=== PATIENT | female | born 1985 | race Caucasian/White ===

== ENCOUNTER 2023-02-22 10:59 | Emergency (ER) | payer BC, SELFPAY ==
--- NOTE | ~2023-02-22 | CT_ITS ---
EXAMINATION: CT head/brain wo IV con CLINICAL INFORMATION: Reason for Exam headache COMPARISON: None. TECHNIQUE: Contiguous axial imaging was performed from the skull base to vertex without intravenous contrast. Sagittal and coronal reformatted images were obtained. This CT examination was performed using dose optimization techniques as appropriate, variously including the following: * Automated exposure control * Adjustment of mA and/or kV according to patient size (this includes techniques or standardized protocols for targeted exams where dose is matched to indication/reason for exam; i.e. extremities or head) Use of iterative reconstruction technique DLP: 661.27 mGy-cm FINDINGS: No acute osseous or soft tissue abnormality. The mastoid air cells and visualized portions of the paranasal sinuses are well aerated. There is no evidence of acute intracranial hemorrhage or territorial infarction. No abnormal mass effect or midline shift is seen. Stout to white matter differentiation is well preserved. No extra-axial fluid collections are identified. No hydrocephalus. No significant volume loss. There is no abnormal attenuation within the brain parenchyma. CT/CT head/brain wo IV con IMPRESSION: No acute intracranial abnormality including hemorrhage, mass effect, hydrocephalus, or acute territorial edematous infarction.
[2023-02-22 11:06] VITALS: BP 137/86; PULSE 76; RESP 16; TEMP 36.2; O2SAT 98; BMI 34.5
--- OUTSIDE RECORDS SUMMARY | 2023-02-22 11:53 | XMS_ITS | Continuity of Care Document ---
Author Name Unknown Organization [facility] Address [address] [place] [address], [address] [place] [address]- Care Team Providers Care Behavior Management Specialist Name Role Phone Humble MALAVE, Jean Claude Primary Care Physician [place] [facility] [place] Date(s): 10/14/21 - 10/21/21 [facility] [address] [place] [address] Drive, [address] [place] [address]- Attending Physician: José Fong MD Referring Physician: Savannah Oates Allergies, Adverse Reactions, Alerts No Known Allergies Immunizations Given and Recorded Vaccine Date Status Refusal Reason influenza virus vaccine, inactivated 03/13/15 Give n influenza virus vaccine, inactivated 03/10/14 Give n influenza virus vaccine, inactivated 1 07/27/13 Gi vidhi influenza virus vaccine, inactivated 2 03/12/11 Gi vidhi tetanus/diphtheria/pertussis, acel(Tdap) 05/17/13 Given Hepatitis B Vaccine (old term) 3 03/29/12 Given Influenza Vaccine (oldterm) 4 03/29/12 Given tetanus-diphtheria toxoids (Td) 5 05/03/07 Given 1Admin Note: vis 12/31/2012 2Admin Note: VIS 12/31/10 3Admin Note: vis given 12/23/2006 4Admin Note: vis given 12/08/2011 5Admin Note: vis given 11/15/93 Medications Eliquis 5 mg oral tablet 1 tablet = 5 mg, By Mouth, 2 times a day, # 60 tablet, 5 Refills, Maintenance, 09/26/21 17:57:00 EDT, Tablet, Partial fill upon patient request if the prescription is for a schedule II opioid drug. Start Date: 09/26/21 Status: Ordered Medrol Dosepak 4 mg oral tablet 1 pack/packet, By Mouth, Daily, for 6 days, as directed on package labeling, # 21 tablet, 5 Refills, Acute 11/04/21 9:31:00 EDT, 09/29/21 9:31:00 EDT, Tablet, [facility]/pharmacy #[id number], Partial fill upon patient request if the prescription is for a schedule... Start Date: 09/29/21 Stop Date: 11/04/21 Status: Ordered oxyCODONE 5 mg oral tablet TAKE 1-2 TABS EVERY 4-6 HRS NEEDED FOR PAIN. DO NOT DRIVE WHLE TAKING MEDICATION Start Date: 09/26/21 Status: Ordered oxyCODONE 5 mg oral tablet See Instructions, PRN, 1-2 tablet By Mouth Every 4 hours, # 60 tablet, Refills 0, Tot. Refills 0, Maintenance, for pain, 09/29/21 12:03:00 EDT, Instructions Replace Required Details, Route to Pharmacy Electronically, [facility]/pharmacy #[id number], Partial fill u... Start Date: 09/29/21 Status: Ordered tiZANidine 4 mg oral tablet 4 mg, 1, tablet, By Mouth, 3 times a day, PRN, # 90 tablet, Refills 0, Tot. Refills 0, Maintenance,Spasm, 09/29/21 9:31:00 EDT, Route to Pharmacy Electronically, [facility]/pharmacy #[id number], Partial fill upon patient request if the prescription is for a sched... Start Date: 09/29/21 Status: Ordered walker walker, See Instructions, # 1 each, Refills 0, Tot. Refills 0, Maintenance, s/p lumbar surgery, gait changes, 09/27/21 15:48:00 EDT, Supply Start Date: 09/27/21 Status: Ordered Problem List Condition Effective Dates Status Health Status Inform ant Gallstone pancreatitis(Confirmed) Active Goal-stop smoking(Confirmed) Active Headache(Confirmed) Active Irritable bowel syndrome(Confirmed) Active Major depression(Confirmed) Active Missed (Confirmed) 09/08/08 Active Obese class I(Confirmed) Active Ovarian cyst(Confirmed) Active Smoking(Confirmed) Active Social History Social History Type Response Smoking Status Former smoker; Other : quit 2011; entered on: 07/04/15 Sex
--- OUTSIDE RECORDS SUMMARY | 2023-02-22 11:53 | XMS_ITS | Continuity of Care Document ---
Author Name Unknown Organization [facility] Address [address] [place] [address], [address] [place] [address]- Care Team Providers Care Invoicing Specialist Name Role Phone Humble MALAVE, Jean Claude Primary Care Physician Encounter [facility] [place] Date(s): 09/30/21 - 10/30/21 [facility] [address] [place] [address] Drive, [address] [place], [place] [address] Allergies, Adverse Reactions, Alerts No Known Allergies [...] 11/04/21 9:31:00 EDT, 09/29/21 9:31:00 EDT, Tablet, [facility]/pharmacy #[id number], Partial fill upon patient request if [...] Replace Required Details, Route to Pharmacy Electronically, [facility]/pharmacy #[id number], Partial fill u... Start Date: 09/29/21 Status: Ordered tiZANidine 4 mg oral tablet 4 mg, 1, tablet, By Mouth, 3 times a day, PRN, # 90 tablet, Refills 0, Tot. Refills 0, Maintenance,Spasm, 09/29/21 9:31:00 EDT, Route to Pharmacy Electronically, [facility]/pharmacy #[id number], Partial fill upon patient request if the prescription is for a sched... Start Date: 09/29/21 Status: Ordered aram chiu, See Instructions, # 1 each, Refills 0, [...]
--- OUTSIDE RECORDS SUMMARY | 2023-02-22 11:53 | XMS_ITS | Continuity of Care Document ---
Author Name Unknown Organization [facility] Address [address] [place] [address] [address], [address] [place] [address]- Care Team Providers Care Credit Coordinator Name Role Phone Humble MALAVE, Jean Claude Primary Care Physician [place] [facility] [place]07[place]21 [place] 11/06/21 [facility] [address] [place] [address] Drive, [address] [place] [address]- Allergies, Adverse Reactions, Alerts No Known Allergies [...] opioid drug. Start Date: 09/26/21 Status: Ordered oxyCODONE 5 [...] Replace Required Details, Route to Pharmacy Electronically, [facility]/pharmacy #[id number], Partial fill u... Start Date: 09/29/21 Status: Ordered tiZANidine 4 mg oral tablet 4 mg, 1, tablet, By Mouth, 3 times a day, PRN, # 90 tablet, Refills 0, Tot. Refills 0, Maintenance,Spasm, 09/29/21 9:31:00 EDT, [id number], Partial fill upon patient request if [...]
--- OUTSIDE RECORDS SUMMARY | 2023-02-22 11:53 | XMS_ITS | Continuity of Care Document ---
Author Name Unknown Organization [facility] Address [address] [place] [address], [address] [place] [address]- Care Team Providers Care Manager Domestic Name Role Phone Jean Claude Kate MD Primary Care Physician [phone] Encounter [facility] [place] Date(s): 10/15/21 - 12/12/21 [facility] [address] [place] [address] Drive, [address] [place] [address]- Attending Physician: José Fong MD Referring Physician: Jean Claude Kate MD Allergies, Adverse Reactions, Alerts No Known Allergies [...] Replace Required Details, Route to Pharmacy Electronically, [facility]/pharmacy #[id number], Partial fill u... Start Date: 09/29/21 Status: Ordered tiZANidine 4 mg oral tablet 4 mg, 1, tablet, By Mouth, 3 times a day, PRN, # 90 tablet, Refills 0, Tot. Refills 0, Maintenance,Spasm, 09/29/21 9:31:00 EDT, [id number] Partial fill upon patient request [...]
--- OUTSIDE RECORDS SUMMARY | 2023-02-22 11:53 | XMS_ITS | Continuity of Care Document ---
Author Name Unknown Organization [facility] Address [address] [place] [address] [address], [address] [address]- Care Team Providers Care Apprentice Plant Attendant Name Role Phone Humble MALAVE, Jean Claude Primary Care Physician [place] [facility] [place]s): 01/20/22 - 02/19/22 [facility] [address] [place] [address] Drive, [address] [id number] Allergies, Adverse Reactions, Alerts No Known Allergies [...] Replace Required Details, [id number] u... Start Date: 09/29/21 Status: Ordered tiZANidine 4 mg oral tablet 4 mg, 1, tablet, By Mouth, 3 times a day, PRN, # 90 tablet, Refills 0, Tot. Refills 0, Maintenance,Spasm, 09/29/21 9:31:00 EDT, [id number] Partial fill upon patient request if [...] : quit 2011; entered on: 07/04/15 Sex Care Team Personnel Name: Humble MALAVE, Jean Claude Address: [address] [facility] [place] [id number]
--- OUTSIDE RECORDS SUMMARY | 2023-02-22 11:53 | XMS_ITS | Continuity of Care Document ---
Author Name Unknown Organization [facility] ter Address [address] [place] [address]- Care Team Providers Care Needle Valve Operator Name Role Phone Humble MALAVE, Jean Claude Primary Care Physician Encounter [facility] [place] Date(s): 09/26/21 - 09/29/[address] [address] Encounter Diagnosis Cauda equina syndrome(Final) - 09/26/21 Discharge Disposition: A-D/C Home Attending Physician: José Fong MD Admitting Physician: José Fong MD Referring Physician: Not on Staff, Referring MD Allergies, Adverse Reactions, Alerts No Known [...] 11/04/21 9:31:00 EDT, 09/29/21 9:31:00 EDT, Tablet, [facility]/pharmacy #[id number], Partial fill upon patient request if the prescription is for a schedule... Start Date: 09/29/21 Stop Date: 11/04/21 Status: Ordered oxyCODONE 5 mg oral tablet 10 mg, Tablet, By Mouth, Every 4 hours, PRN for Pain , Moderate, Routine, 09/26/21 22:33:00 EDT Start Date: 09/26/21 Stop Date: 09/29/21 Status: Discontinued oxyCODONE 5 mg oral tablet TAKE 1-2 TABS EVERY 4-6 HRS NEEDED FOR PAIN. DO NOT DRIVE WHLE TAKING MEDICATION Start Date: 09/26/21 Status: Ordered oxyCODONE 5 mg oral tablet See Instructions, PRN, 1-2 tablet By Mouth Every 4 hours, # 60 tablet, Refills 0, Tot. Refills 0, Maintenance, for pain, 09/29/21 12:03:00 EDT, Instructions Replace Required Details, Route to Pharmacy Electronically, [facility]/pharmacy #[id number], Partial fill u... Start Date: 09/29/21 Status: Ordered tiZANidine 4 mg oral tablet 4 mg, 1, tablet, By Mouth, 3 times a day, PRN, # 90 tablet, Refills 0, Tot. Refills 0, Maintenance,Spasm, 09/29/21 9:31:00 EDT, Route to Pharmacy Electronically, [facility]/pharmacy #[id number], Partial fill upon patient request if [...] I(Confirmed) Active Ovarian cyst(Confirmed) Active Smoking(Confirmed) Active Results Radiology Reports * Exam Date Time Procedure Performing Provider Status 09/27/21 12:10 AM C-Arm > 1 Hour Mee Bee; Auth (Verified) Notes: (C-Arm > 1 Hour) Reason For Exam: Microdisectomy L5-S1 RESULT: C-Arm > 1 Hour Spine Single View, C-Arm > 1 Hour Reason: Microdisectomy L5-S1; Special Instructions: FT 5.4s TT 1hr DAP 2.22 HISTORY: Vitaliy level for surgery. COMPARISON: September 17 Technique: Fluoroscopy was used. No radiologist was present during the procedure. Fluoroscopy time 5.4 seconds. Exposure dose 2.22 mGy. FINDINGS: The anterior tip of the metallic marker is at the L5-S1 level. IMPRESSION: Tip of the metallic marker is at the L5-S1 level. WSN: [id number] Ordering Physician: José Fong Dictated By: Shane Walker MD Dictated Date/Time: 09/27/21 8:39 am Reviewed By: Shane Walker MD Signed By: Shane Walker MD Signed Date/Time: 09/27/21 8:39 am Transcribed By: LAXMI Transcribed Date/Time: 09/27/21 8:33 am * Exam Date Time Procedure Performing Provider Status 09/27/21 12:10 AM Spine Single View Mee Bee; [facility] (Verified) Notes: (Spine Single View) Reason For Exam: Microdisectomy L5-S1 RESULT: Spine Single View Spine Single View, C-Arm > 1 Hour Reason: Microdisectomy L5-S1; Special Instructions: FT 5.4s TT 1hr DAP 2.22 HISTORY: Vitaliy level for surgery. COMPARISON: September 17 Technique: Fluoroscopy was used. No radiologist was present during the procedure. Fluoroscopy time 5.4 seconds. Exposure dose 2.22 mGy. FINDINGS: The anterior tip of the metallic marker is at the L5-S1 level. IMPRESSION: Tip of the metallic marker is at the L5-S1 level. WSN: [id number] Ordering Physician: José Fong Dictated By: Shane Walker MD Dictated Date/Time: 09/27/21 8:39 am Reviewed By: Shane Walker MD Signed By: Shane Walker MD Signed Date/Time: 09/27/21 8:39 am Transcribed By: LAXMI Transcribed Date/Time: 09/27/21 8:33 am Vital Signs Most recent to oldest [Reference Range]: 1 2 3 Height 160 cm (09/29/21 8:00 AM) 160 cm (09/29/21 4:41 AM) 160 cm (09/28/21 11:44 PM) Weight 81.8 kg (09/27/21 2:38 AM) 83 kg (09/26/21 8:42 PM) Oxygen Saturation [94-100 %] 100 % (09/29/21 8:00 AM) 97 % (09/29/21 4:41 AM) 97 % (09/28/21 11:44 PM) Pulse Rate [55-90 bpm] 72 bpm (09/29/21 8:00 AM) 66 bpm (09/29/21 4:41 AM) 74 bpm (09/28/21 11:44 PM) Body Mass Index [18.5-24.99] 31.95 *>HHI* (09/27/21 2:38 AM) Blood Pressure [90-138/55-84 mm Hg] 111/65mm Hg (09/29/21 8:00 AM) 110/64mm Hg (09/29/21 4:41 AM) 118/69mm Hg (09/28/21 11:44 PM) Respiratory Rate [16-30 br/min] 18 br/min (09/29/21 8:00 AM) 18 br/min (09/29/21 4:50 AM) 16 br/min (09/29/21 4:41 AM) Temperature [96.8-100.4 DegF] 98.3 DegF (09/29/21 8:00 AM) 98.4 DegF (09/29/21 4:41 AM) 98.5 DegF (09/28/21 11:44 PM) Liters per Minute 6 L/min (09/27/21 12:30 AM) 6 L/min (09/26/21 11:45 PM) Mode of Delivery (Oxygen) Room air (09/29/21 8:00 AM) Room air (09/29/21 4:41 AM) Room air (09/28/21 11:44 PM) Blood pressure sites Arm, left (09/29/21 8:00 AM) Arm, right (09/29/21 4:41 AM) Arm, left (09/28/21 11:44 PM) Temperature Route Oral (09/29/21 8:00 AM) Oral (09/29/21 4:41 AM) Oral (09/28/21 11:44 PM) Dry Weight 81.8 kg (09/27/21 2:38 AM) Weight Obtained Via Patient/family state d (09/26/21 8:42 PM) Social History Social History Type Response Smoking Status Former smoker; Other : quit 2011; entered on: 07/04/15 Sex Female
--- OUTSIDE RECORDS SUMMARY | 2023-02-22 11:53 | XMS_ITS | Continuity of Care Document ---
Author Name Unknown Organization [facility] Address [address] [place] [address]- Care Team Providers Care Tester Operator Helper Name Role Phone Shane Chen DO Primary Care Physician Encounter [facility] Date(s): 07/19/21 - 08/18/21 [facility] [address] [place] [address] Allergies, Adverse Reactions, Alerts No Known [...] 12/08/2011 5Admin Note: vis given 11/15/93 Medications busPIRone 15 mg oral tablet 1 tablet = 15 mg, By Mouth, 2 times a day, 0 Refills, Maintenance, 04/15/19 18:43:41 EST Start Date: 04/15/19 Status: Ordered Freestyle Lancets See Instructions, # 100 each, Refills 6, Tot. Refills 6, Maintenance, use to check blood sugar twice daily. E16.2, 07/10/21 11:40:00 EST, Compound, 160, cm, 07/10/21 11:07:00 EST, Height Start Date: 07/10/21 Status: Ordered Freestyle Lite Monitor See Instructions, # 1 each, Refills 0, Tot. Refills 0, Maintenance, use to check blood sugar twice daily. E16.2, 07/10/21 11:40:00 EST, Compound, 160, cm, 07/10/21 11:07:00 EST, Height Start Date: 07/10/21 Status: Ordered Freestyle Lite Test Strips See Instructions, # 100 each, Refills 4, Tot. Refills 4, Maintenance, use to check blood sugar twice daily. E16.2, 07/10/21 11:40:00 EST, Compound, 160, cm, 07/10/21 11:07:00 EST, Height Start Date: 07/10/21 Status: Ordered Problem List Condition Effective Dates [...]
--- OUTSIDE RECORDS SUMMARY | 2023-02-22 11:53 | XMS_ITS | Continuity of Care Document ---
Author Name Unknown Organization [facility] Address [address] [place] [address], [address] [place] [address]- Care Team Providers Care Shirring Machine Operator Name Role Phone Humble MALAVE, Jean Claude Primary Care Physician En[place] [facility] [place](s): 01/27/22 - 02/26/22 [facility] [address] [place] [address] Drive, [address] [place], [place] [address] Attending Physician: Becky Malave Admitting Physician: AdmtrBecky Referring Physician: Admtr, Ar8 Allergies, Adverse Reactions, Alerts No Known Allergies [...] Replace Required Details, Route to Pharmacy Electronically, [facility]/pharmacy #[id number], Partial fill u... Start Date: 09/29/21 Status: Ordered tiZANidine 4 mg oral tablet 4 mg, 1, tablet, By Mouth, 3 times a day, PRN, # 90 tablet, Refills 0, Tot. Refills 0, Maintenance,Spasm, 09/29/21 9:31:00 EDT, Route to Pharmacy Electronically, [facility]/pharmacy #[id number], Partial fill upon patient request if [...] Jean Claude Address: [address] [facility] [place], [place] [address]
--- OUTSIDE RECORDS SUMMARY | 2023-02-22 11:53 | XMS_ITS | Continuity of Care Document ---
Author Name Unknown Organization [facility] Address [address] [place] [address]- Care Team Providers Care Pattern Filer Name Role Phone Humble MALAVE, Jean Claude Primary Care Physician [place] [facility] [place](s): 11/27/21 - 12/27/21 [facility] [address] [place] [id number] Attending Physician: Becky Malave Admitting Physician: AdmtrBecky Referring Physician: AdmtrBecky Allergies, Adverse Reactions, Alerts No Known Allergies [...] Replace Required Details, Route to Pharmacy Electronically, [facility]/pharmacy #[id number], Partial fill u... Start Date: 09/29/21 Status: Ordered tiZANidine 4 mg oral tablet 4 mg, 1, tablet, By Mouth, 3 times a day, PRN, # 90 tablet, Refills 0, Tot. Refills 0, Maintenance,Spasm, 09/29/21 9:31:00 EDT, Route to Pharmacy Electronically, [facility]/pharmacy #[id number], Partial fill upon patient request if [...]
--- OUTSIDE RECORDS SUMMARY | 2023-02-22 11:53 | XMS_ITS | Continuity of Care Document ---
Author Name Unknown Organization [facility] Address [address] [place] [address], [address] [place] [address]- Care Team Providers Care Seo Marketing Specialist Name Role Phone Jean Claude Kate MD Primary Care Physician [phone] Encounter [facility] [place] Date(s): 01/27/22 - 02/03/22 [facility] [address] [place] [address] Drive, [address] [place] [address]- Attending Physician: José Fong MD Referring Physician: [...] Replace Required Details, Route to Pharmacy Electronically, [facility]/pharmacy #[id number], Partial fill u... Start Date: 09/29/21 Status: Ordered tiZANidine 4 mg oral tablet 4 mg, 1, tablet, By Mouth, 3 times a day, PRN, # 90 tablet, Refills 0, Tot. Refills 0, Maintenance,Spasm, 09/29/21 9:31:00 EDT, Route to Pharmacy Electronically, [facility]/pharmacy #[id number], Partial fill upon patient request [...] I(Confirmed) Active Ovarian cyst(Confirmed) Active Smoking(Confirmed) Active Vital Signs Most recent to oldest [Reference Range]: 1 Height 160 cm (01/27/22 10:16 AM) Weight 81.8 kg (01/27/22 10:16 AM) Body Mass Index [18.5-24.99] 31.95 *>HHI* (01/27/22 10:16 AM) Social History Social History Type Response Smoking Status Former smoker; Other : quit 2011; entered on: 07/04/15 Sex Care Team Personnel Name: Jean Claude Kate MD Address: [address] [facility] [address]
--- OUTSIDE RECORDS SUMMARY | 2023-02-22 11:53 | XMS_ITS | Continuity of Care Document ---
Author Name Unknown Organization [facility] Address [address] [place] [address], [address] [place] [address]- Care Team Providers Care Steam Station Supervisor Name Role Phone Humble MALAVE, Jean Claude Primary Care Physician [place] [facility] [place] 12[place]12/21 [facility] [address] [place] [address] Drive, [address] [place], [place] [address] Attending Physician: Becky Malave Admitting Physician: AdmtrBecky Referring Physician: Admtr, ArBilly Allergies, Adverse Reactions, Alerts No Known Allergies [...] Replace Required Details, Route to Pharmacy Electronically, [facility]/pharmacy #[id number], Partial fill u... Start Date: 09/29/21 Status: Ordered tiZANidine 4 mg oral tablet 4 mg, 1, tablet, By Mouth, 3 times a day, PRN, # 90 tablet, Refills 0, Tot. Refills 0, Maintenance,Spasm, 09/29/21 9:31:00 EDT, Route to Pharmacy Electronically, [facility]/pharmacy #[id number], Partial fill upon patient request [...]
--- NOTE | 2023-02-22 12:24 | ED_ITS ---
HPI - Headache General Chief Complaint: Headache Stated Complaint: Headache Time Seen by Provider: 02/22/23 12:13 Source: patient and RN notes reviewed Mode of arrival: ambulatory Limitations: no limitations History of Present Illness HPI Narrative: This is a 37-year-old female presenting to the emergency department with complaints of headache for the last 2 days. Patient reports that this started yesterday states that the pain is different than typical migraines. She states that she typically has a bandlike sensation around her with her migraines however states that since yesterday she has had a stabbing sensation in the right side of her head. She has tried all of her migraine medications including triptans which has provided her without any relief. Patient reports that over this last week she has had cold-like symptoms and was seen by urgent care and was prescribed azithromycin which she has been taking.. Denies any recent trauma or injury to her head. She is not on blood thinners. No other complaints or concerns at this time. MD elicited complaint: migraine Pertinent past history: migraines Onset (ago): day(s) Onset description: gradually Location: right Severity: severe Quality & Timing: sharp and different than previous headaches Exacerbating factors: none Relieving factors: nothing Associated symptoms: nausea, vomiting, photophobia and sensitivity to sound Treatments prior to arrival: none Related Data Previous Rx's Medication Instructions Recorded judqdndblr-uvgqiytbttiie-vcdkyrnz 1 cap PO Q4-6H PRN pain #20 caps 02/22/23 50 mg-300 mg-40 mg capsule (Fioricet) Allergies Allergy/AdvReac Type Severity Reaction Status Date / Time No Known Allergies Allergy Verified 02/22/23 11:06 [No Known Allergies*] Review of Systems Review of Systems: Yes all other systems are reviewed and are negative Constitutional: Constitutional: Reports as per HPI [facility] Past Medical History Attestation statement: The following information was validated with the patient. Social History Social History Advance Directives: No Advance Directives Information Provided: Yes Physical Exam Vital Signs: Vital Signs: Last Vital Signs Temp 97.1 F 02/22/23 11:06 Pulse 81 02/22/23 16:18 Resp 16 02/22/23 14:49 BP 108/64 02/22/23 16:18 Pulse Ox 98 02/22/23 11:06 O2 Del Method Room Air 02/22/23 14:49 BMI result Body Mass Index 34.5 Const: General: cooperative, comfortable and no acute distress Orientation/consciousness: patient oriented x3 Limitations: no limitations HEENT: Other: No sinus tenderness to palpation. Head: Yes normal to inspection, Yes normocephalic and Yes atraumatic Ears: hearing grossly normal bilaterally General nose exam: Normal external nose present Face and sinus: Yes normal facial exam Mouth: Normal oral and palatal mucosa present, oropharynx normal and moist mucous membranes Throat: Yes posterior oropharynx normal Eyes: General: appearance normal, both eyes and all related structures Eyelids: Yes eyelids normal Conjunctivae: conjunctivae normal Sclerae: sclerae normal Pupils: Equal, round and reactive pupils present EOM: EOMs intact bilaterally Neck: Neck: Yes normal visual inspection, Yes full ROM and Yes no l ymphadenopathy Lymphatic: no lymphadenopathy noted Chest: Chest palpation & inspection: normal inspection of the chest Resp: Effort & Inspection: normal respiratory effort and able to speak in complete sentences Auscultation: clear to auscultation bilaterally, no crackles, no rales, no rhonchi and no wheezes Cardio: Rate: regular rate Rhythm: regular rhythm Heart sounds: S1 normal heart sound present and S2 normal heart sound present GI: Inspection: Yes normal to inspection Skin: General skin exam: no rashes or lesions noted Trauma: no lacerations or abrasions Wounds: no wounds Neuro: General: patient oriented x3 and moves all extremities Cranial nerves: Yes CN's II-XII intact bilaterally, Yes Facial sensation intact/muscles of mastication intact, Yes Equal, round and reactive pupils present, Yes Nystagmus not present, Yes Ability to bilaterally rotate head present and Yes A bility to bilaterally elevate shoulders present Cognition (Neuro): normal cognition Gait exam (Neuro): Normal gait present Motor exam (neuro): 5/5 motor strength present throughout and Pronator motor function not present Coordination: udcyiv-as-rlks test normal, fcjw-xp-ztps test normal and tandem gait normal Romberg Test: Negative Extrem: General: Yes normal to inspection Right upper extremity: normal to inspection Left upper extremity: normal to inspection Right lower extremity: normal to inspection Left lower extremity: normal to inspection Course Reevaluation(s) Reevaluation #1: Patient resting comfortably, asleep in bed, feeling better just tired, will discharge home with Fioricet. Advised to return with any new or worsening symptoms. Patient understands and agrees with plan. Patient stable for discharge. Time: 16:09 Medications Administered Discontinued Medications Generic Name Dose Route Start Last Admin Trade Name Bridgette PRN Reason Stop Dose Admin Acetaminophen/Butalbital/Caffeine 1 tab 02/22/23 15:08 02/22/23 15:14 Butalb/Acetamin/Caff 50/325/40 Tablet PO 02/22/23 15:09 1 tab ONCE ONE Administration Diphenhydramine HCl 50 mg 02/22/23 12:22 02/22/23 12:39 Diphenhydramine Hcl 50 Mg/Ml Vial IVPUSH 02/22/23 12:23 50 mg ONCE ONE Administration Sodium Chloride 1,000 mls @ 999 mls/hr 02/22/23 12:23 02/22/23 13:46 Ns IV 02/22/23 13:23 Infused .Q1H1M ONE Infusion Sodium Chloride 1,000 mls @ 999 mls/hr 02/22/23 13:43 02/22/23 15:02 Ns IV 02/22/23 14:43 Infused .Q1H1M ONE Infusion Ketorolac Tromethamine 30 mg 02/22/23 13:43 02/22/23 13:51 Ketorolac Tromethamine 30 Mg/Ml Vial IVPUSH 02/22/23 13:44 30 mg ONCE ONE Administration Metoclopramide HCl 10 mg 02/22/23 12:22 02/22/23 12:39 Metoclopramide Hcl 10 Mg/2 Ml Vial IVPUSH 02/22/23 12:23 10 mg ONCE ONE Administration Morphine Sulfate 4 mg 02/22/23 12:22 02/22/23 12:38 Morphine Sulfate 4 Mg/Ml Cartridge IVPUSH 02/22/23 12:23 4 mg ONCE ONE Administration Protocol Medical Decision Making Medical Decision Making MDM Narrative: 37-year-old female presenting to the emergency department with complaints of migraine since yesterday. On examination, vital signs within normal limits. Patient is fully neurologically intact. Patient reports that her migraine currently is different than the migraine she has had in the past. She states that she typically goes to [facility] for her migraines which respond well to migraine cocktail. Given different onset and pain than her typical migraine, CT head was ordered. Given patient is in significant amount of pain, will medicate with Benadryl, Reglan, morphine 4 mg IV. Will hold off on Toradol until we receive CT scan of the head. Differential Diagnosis Differential Diagnoses: The differential diagnosis associated with the presentation includes Migraine, tension headache, cluster headache Admission/Observation Consideration of admission/observation: Escalation of care including admission/observation considered Patient would have been admitted to the hospital had her work up had any findings where hospital admission was appropriate and her clinical presentation warranted hospital admission. Lab Data MDM Lab Attestation statement: I reviewed the patient's lab results. Flu, RSV, COVID negative Labs: Lab Results 02/22/23 Range/Units 12:47 Influenza Type A (PCR) NEGATIVE (Negative) Influenza Type B (PCR) NEGATIVE (Negative) RSV RNA Qual (PCR) NEGATIVE (Negative) SARS-CoV-2 RNA (RT-PCR) NEGATIVE (Negative) Radiology Impression Discussion of test interpretation with radiology: I have reviewed the radiologist's reading. Radiologist Impression: EXAMINATION: CT head/brain wo IV con CLINICAL INFORMATION: Reason for Exam headache COMPARISON: None. TECHNIQUE: Contiguous axial imaging was performed from the skull base to vertex without intravenous contrast. Sagittal and coronal reformatted images were obtained. This CT examination was performed using dose optimization techniques as appropriate, variously including the following: * Automated exposure control * Adjustment of mA and/or kV according to patient size (this includes techniques or standardized protocols for targeted exams where dose is matched to indication/reason for exam; i.e. extremities or head) Use of iterative reconstruction technique DLP: 661.27 mGy-cm FINDINGS: No acute osseous or soft tissue abnormality. The mastoid air cells and visualized portions of the paranasal sinuses are well aerated. There is no evidence of acute intracranial hemorrhage or territorial infarction. No abnormal mass effect or midline shift is seen. Stout to white matter differentiation is well preserved. No extra-axial fluid collections are identified. No hydrocephalus. No significant volume loss. There is no abnormal attenuation within the brain parenchyma. CT/CT head/brain wo IV con IMPRESSION: No acute intracranial abnormality including hemorrhage, mass effect, hydrocephalus, or acute territorial edematous infarction. Dictated By: Akin Argueta Discharge Plan Discharge Clinical Impression: Migraine Patient Disposition: Home, Self-Care Instructions: Migraine Headache (ED) Additional Instructions: Please drink plenty of fluids get plenty of rest. You tested negative for COVID, flu, and RSV today. Take prescribed Fioricet as needed as directed Your head CT did not show any abnormalities. Please follow-up with your primary care physician regarding this visit. Please continue taking your antibiotic that your prescribed. Finish the entire course. If any new or worsening symptoms occur, please return for re-evaluation. Prescriptions: New mczevsbtoa-nxubipsxvztii-nbhz [Fioricet] 50-300-40 mg capsule 1 cap PO Q4-6H PRN (Reason: pain) Qty: 20 0RF Stand Alone Forms: Work/School Release Interventions: ED Discharge Assessment Last Done: 02/22/23 16:19 Discharge Date/Time: 02/22/23 16:19
[2023-02-22] MEDS: Morphine Sulfate 4 MG/ML CARTRIDGE IVPUSH (12:38)
[2023-02-22] MEDS: Metoclopramide HCl 10 MG/2 ML VIAL IVPUSH (12:39)
[2023-02-22] MEDS: diphenhydrAMINE HCL 50 MG/ML VIAL IVPUSH (12:39)
[2023-02-22] MEDS: 0.9 % Sodium Chloride 1,000 ML 999 ML IV ×2 (12:40→13:51)
[2023-02-22 13:38] LABS: Influenza A PCR NEGATIVE (Negative); Influenza B PCR NEGATIVE (Negative); Resp Syncy Virus RNA Qual PCR NEGATIVE (Negative); SARS COV2 PCR INHOUSE NEGATIVE (Negative)
[2023-02-22] MEDS: Ketorolac Tromethamine 30 MG/ML VIAL IVPUSH (13:51)
[2023-02-22 14:49] VITALS: BP 94/64; PULSE 61; RESP 16
[2023-02-22] MEDS: Butalb/Acetamin/Caff 50/325/40 TABLET 1 TAB PO (15:14)
--- NOTE | 2023-02-22 15:16 | PC.NURSE ---
migraine headache ongoing 11/15, nausea now resolved.
[2023-02-22 16:18] VITALS: BP 108/64; PULSE 81
== END 2023-02-22 16:19 | disposition home or self-care (01) ==
PROVIDERS: Physician Assistant Medical; Emergency Provider Student in an Organized Health Care Education/Training Program
DX: G43.909 Migraine, unspecified, not intractable, without status migrainosus (principal); Z20.822 Contact with and (suspected) exposure to COVID-19; Z20.828 Contact with and (suspected) exposure to other viral communicable diseases
CPT/HCPCS: 0241U; 70450; 96361; 96374; 96375; 96376; 99284; J1200; J1885; J2270; J2765